=== PATIENT | male | born 1960 | race Caucasian/White ===

== ENCOUNTER → 2017-08-21 | Outpatient (CLI) | payer MEDICARE, MEDICAID ==
[~2017-08-21] MED LIST: AMMONIUM LACTA140 GM TOP; BAYER CHEWABLE81 MG PO; CELEBREX 200 M200 M1 PO; FLONASE 0.05%50 MCG NASAL; LIPITOR10 MG PO; OMEPRAZOLE40 MG PO; SYMBICORT160 MCG/4. INH; TRIAMCINOLONE A80 G2 TOP; VENTOLIN HFA 1818 GM INH; VITAMIN D31000 UNI2 PO
== END ==
LOC: M.LAB 11:35
DX: Z08 Encounter for follow-up examination after completed treatment for malignant neoplasm (principal); Z85.46 Personal history of malignant neoplasm of prostate

== ENCOUNTER → 2017-08-27 | Outpatient (CLI) | payer MEDICARE, MEDICAID ==
--- NOTE | 2017-09-07 12:46 | ONC ---
[address] [address] RADIATION ONCOLOGY NOTE Name: XENA MOSQUEDA JR Room: [facility]#: [id number] Admission: 08/27/17 Attend Phys: Erasmo Patel MD Discharge: Date of : 56 Report #: [id number] THIS REPORT FOR: //name// CC: Erasmo Penn MD DATE OF SERVICE: 08/27/2017 RADIATION ONCOLOGY FOLLOWUP NOTE [facility] phone is [phone]. REFERRING PHYSICIAN: Yadi Penn M.D. PRIMARY SITE AND HISTOPATHOLOGY: The patient had a recurrent prostate cancer after prostatectomy, as evidenced by a rising PSA. His PSA on 11/25/2013 was 0.96 after his prostatectomy. The Sophia score was 3+5 equals 8. His PSA prior to prostatectomy in 03/2011 was 14.8. He had his prostatectomy on 12/04/2011. He also had salvage radiation therapy that was completed on 03/01/2014. INTERVAL NOTE: The patient is emptying his bladder well. He declined to have a screening chest CT. MEDICATIONS: Include Lipitor, albuterol, fluticasone, omeprazole, triamcinolone cream, meloxicam and metoprolol. SOCIAL HISTORY: The patient is on disability. He is . Cigarettes: he continues to smoke about a half pack of cigarettes per day; he has smoked since about 1983. REVIEW OF SYSTEMS: GASTROINTESTINAL: He has a good appetite. He has about one bowel movement a day. GENITOURINARY: He empties his bladder well. PHYSICAL EXAMINATION: VITAL SIGNS: The patient weighed 158.4 pounds on 08/27/2017. He was 159.4 pounds on 01/15/2017; on 08/27/2017, blood pressure was 131/80, pulse 57 and respirations 18. BACK: Had no tenderness to palpation. HEART: Had a regular rate and rhythm, without murmur. LUNGS: were clear to auscultation. RECTAL EXAMINATION: Prostate bed was flat. The patient was guaiac negative, using [employer] Hem[employer] cards from lot #[id number] that in 10/2019 and using [employer] Hemoccult developer from lot #[id number], [place] [address] RADIATION ONCOLOGY NOTE Name: XENA MOSQUEDA JR Room: [facility]#: [id number] Admission: 08/27/17 Attend Phys: Erasmo Patel MD Discharge: Date of : 56 Report #: [id number] 05/2020. LABORATORY DATA: PSA from 08/21/2017 was 0.2 and on 01/10/2017, PSA was less than 0.1. ASSESSMENT AND PLAN: 1. History of prostate cancer- The patient now has a detectable PSA. This could be due to recurrent prostate cancer versus a lab error. So, a requisition was written for a new PSA and the patient was asked to schedule a followup appointment to see me after the next PSA is checked. He was told that if that is undetectable, then we will just continue regular followup. On the other hand, if he still has detectable PSA, then he may have to be evaluated for possible androgen suppression by his medical oncologist, Dr. Penn. 2. Smoking- The patient was encouraged to quit smoking. He has declined screening chest CTs. 3. Hyperlipidemia- The patient takes Lipitor for hyperlipidemia and that is managed by his referring physicians. 4. Hypertension- The patient takes metoprolol for hypertension and that is managed by his referring physicians. Thank you for allowing me to participate in the care of this patient. <ELECTRONICALLY SIGNED> By: Erasmo Patel MD 09/07/17 [id number] Patel MD /nt
== END ==
LOC: M.RTH 07-16 10:15
DX: Z08 Encounter for follow-up examination after completed treatment for malignant neoplasm (principal); E78.5 Hyperlipidemia, unspecified; I10 Essential (primary) hypertension; F17.200 Nicotine dependence, unspecified, uncomplicated; Z85.46 Personal history of malignant neoplasm of prostate